=== PATIENT | male | born 1950 | race Caucasian/White ===

== ENCOUNTER → 2020-11-05 03:21 | Outpatient (CLI) | payer MEDICARE, SELFPAY ==
[2020-11-05 19:50] LABS: SARS-CoV-2 RNA PCR Negative
== END ==
PROVIDERS: Visit Provider Internal Medicine Gastroenterology
DX: Z01.812 Encounter for preprocedural laboratory examination (principal); Z20.822 Contact with and (suspected) exposure to COVID-19
CPT/HCPCS: C9803; U0003; U0005

== ENCOUNTER 2020-11-08 00:10 | Day surgery (SDC) | payer MEDICARE, SELFPAY ==
[2020-10-29 11:35] VITALS: BMI 30.7
--- NOTE | 2020-11-08 07:01 | WPDANESEPPF ---
Anes - Initial Pre Proc Eval Procedure: Operation Date: 11/08/20 08:00 Proposed Procedures p Screening Colonoscopy - Morgan Luna MD Date/Time: 11/08/20 07:01 Surgeon: Morgan Luna MD Pre Op Diagnosis: hx of colon polyps, family hx of colon ca Patient Data Age: 69 Gender: M Height: 1.78 m Weight: 97 kg Allergies Allergy/AdvReac Type Severity Reaction Status Date / Time Penicillins Allergy Mild unk Verified 11/08/20 07:02 Home Medications Medication Instructions Recorded Confirmed Type allopurinol 300 mg tablet 300 mg PO BID 09/01/20 11/08/20 History bupropion HCl 75 mg tablet 75 mg PO BID 09/01/20 11/08/20 History famotidine 20 mg tablet 20 mg PO DAILY 09/01/20 11/08/20 History irbesartan 75 mg tablet 75 mg PO DAILY 09/01/20 11/08/20 History metoprolol succinate 50 mg 50 mg PO DAILY 09/01/20 11/08/20 History tablet,extended release 24 hr rosuvastatin 5 mg tablet 5 mg PO DAILY 09/01/20 11/08/20 History amlodipine 5 mg PO DAILY 10/29/20 11/08/20 History divalproex 250 mg PO DAILY 10/29/20 11/08/20 History duloxetine 60 mg PO DAILY 10/29/20 11/08/20 History Patient hx anesthesia problems: none Family hx anesthesia problems: none PMFSH Past Medical History Medical History (Updated 11/08/20 @ 07:02 by Santhosh Marie DO) Bipolar disorder Depression Gout Hyperlipidemia Hypertension Social History Social History Smoking status: Never smoker Alcohol intake: never Substance use: never Living arrangements: alone Spiritual care concerns: No Anes - Eval Final PreProcedure Day of Procedure 11/08/20 07:01 Patient weight: obese Heart: regular rate and rhythm Lungs: clear to auscultation and normal air movement Airway: Mallampati scale class III Neurological: alert and oriented Last oral intake: >/= 8 hours ASA classification: III Emergent: no Anesthetic plan: proceed Anesthesia type and monitoring: general GIVS and standard monitoring Informed Consent: The patient's anesthetic plan and its attendant risks and benefits were discussed with the patient/family/POA. Questions were solicited and answers provided to the satisfaction of the patient/family/POA.
[2020-11-08 07:03] VITALS: BP 142/83; PULSE 100; RESP 20; TEMP 36.2; O2SAT 97; BMI 31.5
[2020-11-08] MEDS: LACTATED RINGERS 1,000 ML 150 ML IV CONT (07:23)
[2020-11-08 08:14] VITALS: BP 106/70; PULSE 92; RESP 29; O2SAT 93
[2020-11-08 08:24] VITALS: BP 101/66; PULSE 91; RESP 21; O2SAT 92
[2020-11-08 08:34] VITALS: BP 97/63; PULSE 86; RESP 22; O2SAT 97
== END 2020-11-08 08:48 | disposition home or self-care (01) ==
PROVIDERS: Visit Provider Internal Medicine Gastroenterology
PROC: 0DJD8ZZ Inspection of Lower Intestinal Tract, Via Natural or Artificial Opening Endoscopic (ICD-10-PCS; CPT 45378; principal; 2020-11-08 08:00)
DX: Z12.11 Encounter for screening for malignant neoplasm of colon (principal); Z86.010 Personal history of colon polyps; K57.30 Diverticulosis of large intestine without perforation or abscess without bleeding; D12.2 Benign neoplasm of ascending colon; Z80.0 Family history of malignant neoplasm of digestive organs; F31.9 Bipolar disorder, unspecified; E78.5 Hyperlipidemia, unspecified; E66.9 Obesity, unspecified; Z68.31 Body mass index [BMI] 31.0-31.9, adult
CPT/HCPCS: 45385; 88305; J2704; J7120